=== PATIENT | female | born 1975 | race Caucasian/White ===

== ENCOUNTER 2016-05-26 16:57 | Emergency (ER) | payer MEDICAID ==
[2013-12-15 02:58] VITALS: BMI 37.5
[~2016-05-26 16:57] MED LIST: AMBIEN10 MG PO; CARAFATE1 G PO; COLCRYS0.6 MG PO; CYMBALTA60 MG PO; FIORICET/ESGIC1 TAB PO; INDERAL10 MG; KLONOPIN1 MG PO; NICODERM C1 PATCH .1 TD; PERCOCET 5-3251 TAB PO; PRILOSEC20 MG PO; TENORMIN50 MG PO; VISTARIL25 MG PO; XANAX1 MG PO; ZANTAC150 MG PO; ZOFRAN4 MG PO
[2016-05-26 18:13] LABS: BASOPHILS 0.2 % (0.0-2.0); HEMATOCRIT 39.4 % (36.0-48.0); HEMOGLOBIN 13.1 g/dL (12-16); IMMATURE GRANULOCYTES 0.1 % (0-5); LYMPHOCYTES 24.7 % (15-50); MCH 30.1 pg (26.0-34.0); MCHC 33.2 g/dL (31.0-37.0); MCV 90.6 fL (80.0-100.0); MEAN PLATELET VOLUME 10.6 fL (7.4-10.4); MONOCYTES 4.5 % (2-11); NEUTROPHILS 67.5 % (40-80); PLATELET COUNT 298 10x3/uL (130-400); RBC 4.35 10x6/uL (4.00-5.40); RDW 15.4 % (11.5-14.5); WBC 13.7 10x3/uL (4.8-10.8)
[2016-05-26 18:53] LABS: ALKALINE PHOSPHATASE 208 U/L (46-116); ALT (SGPT) 38 U/L (10-68); CALC OSMOLALITY 273 mosm/kg (275-300); CALCIUM 9.1 mg/dL (8.5-10.1); CARBON DIOXIDE 25.6 mmol/L (21.0-32.0); CHLORIDE - SERUM 104 mmol/L (98-107); CREATININE - SERUM 0.6 mg/dL (0.6-1.3); GLUCOSE 96 mg/dL (74-106); PROTEIN - SERUM 6.4 g/dL (6.4-8.2); SODIUM 137 mmol/L (136-145); UREA NITROGEN 13 mg/dL (7-18); eGFR NON AFRICAN AMERICAN > 90 mL/min (90-120)
[2016-05-26 21:28] LABS: APPEARANCE CLEAR (CLEAR); BILIRUBIN NEGATIVE (NEGATIVE); COLOR YELLOW (YELLOW); GLUCOSE NEGATIVE (NEGATIVE); KETONE NEGATIVE (NEGATIVE); LEUKOCYTE ESTERASE NEGATIVE (NEGATIVE); NITRITE NEGATIVE (NEGATIVE); PROTEIN NEGATIVE (NEGATIVE); UROBILINOGEN NORMAL (NORMAL)
[2016-05-26 21:38] LABS: UDS - AMPHET NEGATIVE QUAL (NEGATIVE); UDS - BARB NEGATIVE QUAL (NEGATIVE); UDS - BENZO NEGATIVE QUAL (NEGATIVE); UDS - COCAINE NEGATIVE QUAL (NEGATIVE); UDS - METH NEGATIVE QUAL (NEGATIVE); UDS - OPIATE POSITIVE QUAL (NEGATIVE); UDS - PCP NEGATIVE QUAL (NEGATIVE); UDS - THC NEGATIVE QUAL (NEGATIVE)
== END 2016-05-26 22:48 | disposition home or self-care (01) ==
LOC: D.ER 16:57
PROVIDERS: Emergency Medicine; Family Medicine
DX: J06.9 Acute upper respiratory infection, unspecified (principal); R07.89 Other chest pain; F17.200 Nicotine dependence, unspecified, uncomplicated; K21.9 Gastro-esophageal reflux disease without esophagitis; J44.9 Chronic obstructive pulmonary disease, unspecified

== ENCOUNTER 2016-08-19 19:37 | Emergency (ER) | payer MEDICAID ==
[2013-12-15 02:58] VITALS: BMI 37.5
== END 2016-08-19 21:00 | disposition left against medical advice (07) ==
LOC: D.ER 19:37
DX: M54.5 Low back pain (principal)

== ENCOUNTER → 2016-08-27 15:15 | Outpatient (CLI) | payer MEDICAID ==
[2013-12-15 02:58] VITALS: BMI 37.5
== END | disposition home or self-care (01) ==
LOC: D.MRI 08-25 16:30
DX: M54.5 Low back pain (principal)

== ENCOUNTER 2016-10-12 21:52 | Emergency (ER) | payer MEDICAID ==
[2013-12-15 02:58] VITALS: BMI 37.5
[2016-10-12 22:26] LABS: APPEARANCE CLEAR (CLEAR); BILIRUBIN NEGATIVE (NEGATIVE); COLOR YELLOW (YELLOW); GLUCOSE NEGATIVE (NEGATIVE); KETONE NEGATIVE (NEGATIVE); LEUKOCYTE ESTERASE NEGATIVE (NEGATIVE); NITRITE NEGATIVE (NEGATIVE); PROTEIN NEGATIVE (NEGATIVE); SPECIFIC GRAVITY 1.015 (1.005-1.020); UROBILINOGEN NORMAL (NORMAL)
[2016-10-12 22:47] LABS: UDS - AMPHET NEGATIVE QUAL (NEGATIVE); UDS - BARB POSITIVE QUAL (NEGATIVE); UDS - BENZO NEGATIVE QUAL (NEGATIVE); UDS - COCAINE NEGATIVE QUAL (NEGATIVE); UDS - METH NEGATIVE QUAL (NEGATIVE); UDS - OPIATE POSITIVE QUAL (NEGATIVE); UDS - PCP NEGATIVE QUAL (NEGATIVE); UDS - THC NEGATIVE QUAL (NEGATIVE)
== END 2016-10-12 23:27 | disposition home or self-care (01) ==
LOC: D.ER 21:52
PROVIDERS: Nurse Practitioner Acute Care
DX: B34.9 Viral infection, unspecified (principal); J44.9 Chronic obstructive pulmonary disease, unspecified; K21.9 Gastro-esophageal reflux disease without esophagitis; F17.200 Nicotine dependence, unspecified, uncomplicated; R06.02 Shortness of breath; R00.2 Palpitations; R05 Cough; R11.2 Nausea with vomiting, unspecified; R19.7 Diarrhea, unspecified; R51 Headache; R42 Dizziness and giddiness

== ENCOUNTER 2016-11-10 02:24 | Emergency (ER) | payer MEDICAID ==
[2013-12-15 02:58] VITALS: BMI 37.5
[2016-11-10 02:58] LABS: BASOPHILS 0.1 % (0-2); EOSINOPHILS 1.8 % (0-7); HEMATOCRIT 36.6 % (36.0-48.0); HEMOGLOBIN 12.8 g/dL (12-16); IMMATURE GRANULOCYTES 0.1 % (0-5); MCH 31.1 pg (26.0-34.0); MCV 89.1 fL (80.0-100.0); MEAN PLATELET VOLUME 10.4 fL (7.4-10.4); MONOCYTES 6.1 % (2-11); NEUTROPHILS 45.9 % (40-80); PLATELET COUNT 241 10x3/uL (130-400); RBC 4.11 10x6/uL (4.00-5.40); RDW 13.9 % (11.5-14.5); WBC 8.2 10x3/uL (4.8-10.8)
[2016-11-10 03:11] LABS: ACETAMINOPHEN 23.1 ug/mL (10.0-30.0); ALBUMIN 3.3 g/dL (3.4-5.0); ALKALINE PHOSPHATASE 84 U/L (46-116); ALT (SGPT) 10 U/L (10-68); BILIRUBIN - TOTAL 0.16 mg/dL (0.2-1.3); CALC OSMOLALITY 281 mosm/kg (275-300); CALCIUM 8.1 mg/dL (8.5-10.1); CARBON DIOXIDE 24.9 mmol/L (21.0-32.0); CHLORIDE - SERUM 106 mmol/L (98-107); CREATININE - SERUM 0.6 mg/dL (0.6-1.3); GLUCOSE 84 mg/dL (74-106); PROTEIN - SERUM 6.6 g/dL (6.4-8.2); SODIUM 142 mmol/L (136-145); UREA NITROGEN 12 mg/dL (7-18); eGFR NON AFRICAN AMERICAN > 90 mL/min (90-120)
[2016-11-10 03:14] LABS: POTASSIUM - SERUM 2.8 mmol/L (3.5-5.1)
[2016-11-10 04:38] LABS: APPEARANCE CLEAR (CLEAR); BILIRUBIN NEGATIVE (NEGATIVE); COLOR YELLOW (YELLOW); GLUCOSE NEGATIVE (NEGATIVE); KETONE NEGATIVE (NEGATIVE); LEUKOCYTE ESTERASE NEGATIVE (NEGATIVE); NITRITE NEGATIVE (NEGATIVE); PROTEIN NEGATIVE (NEGATIVE); UROBILINOGEN NORMAL (NORMAL)
[2016-11-10 04:53] LABS: UDS - AMPHET NEGATIVE QUAL (NEGATIVE); UDS - BARB POSITIVE QUAL (NEGATIVE); UDS - BENZO POSITIVE QUAL (NEGATIVE); UDS - COCAINE NEGATIVE QUAL (NEGATIVE); UDS - METH NEGATIVE QUAL (NEGATIVE); UDS - OPIATE NEGATIVE QUAL (NEGATIVE); UDS - PCP NEGATIVE QUAL (NEGATIVE); UDS - THC NEGATIVE QUAL (NEGATIVE)
== END 2016-11-10 07:09 | disposition short-term general hospital (02) ==
LOC: D.ER 02:24
PROVIDERS: Emergency Medicine
DX: F32.9 Major depressive disorder, single episode, unspecified (principal); R45.851 Suicidal ideations; E87.6 Hypokalemia; J44.9 Chronic obstructive pulmonary disease, unspecified; K21.9 Gastro-esophageal reflux disease without esophagitis; F17.200 Nicotine dependence, unspecified, uncomplicated

== ENCOUNTER 2017-01-06 21:54 | Emergency (ER) | payer MEDICAID ==
[2013-12-15 02:58] VITALS: BMI 37.5
[2017-01-06 22:47] LABS: BASOPHILS 0.2 % (0-2); EOSINOPHILS 1.7 % (0-7); HEMATOCRIT 40.2 % (36.0-48.0); HEMOGLOBIN 13.6 g/dL (12-16); IMMATURE GRANULOCYTES 0.2 % (0-5); LYMPHOCYTES 43.8 % (15-50); MCH 31.6 pg (26.0-34.0); MCHC 33.8 g/dL (31.0-37.0); MCV 93.3 fL (80.0-100.0); MEAN PLATELET VOLUME 10.7 fL (7.4-10.4); MONOCYTES 4.9 % (2-11); NEUTROPHILS 49.2 % (40-80); PLATELET COUNT 236 10x3/uL (130-400); RBC 4.31 10x6/uL (4.00-5.40); RDW 13.3 % (11.5-14.5); WBC 10.6 10x3/uL (4.8-10.8)
[2017-01-06 23:00] LABS: ALBUMIN 3.4 g/dL (3.4-5.0); ALKALINE PHOSPHATASE 99 U/L (46-116); ALT (SGPT) 11 U/L (10-68); CALC OSMOLALITY 281 mosm/kg (275-300); CALCIUM 8.3 mg/dL (8.5-10.1); CARBON DIOXIDE 21.6 mmol/L (21.0-32.0); CHLORIDE - SERUM 106 mmol/L (98-107); CREATININE - SERUM 0.8 mg/dL (0.6-1.3); GLUCOSE 88 mg/dL (74-106); POTASSIUM - SERUM 3.5 mmol/L (3.5-5.1); PROTEIN - SERUM 6.7 g/dL (6.4-8.2); SODIUM 141 mmol/L (136-145); UREA NITROGEN 19 mg/dL (7-18); eGFR NON AFRICAN AMERICAN 83 mL/min (90-120)
== END 2017-01-07 01:08 | disposition home or self-care (01) ==
LOC: D.ER 21:54
PROVIDERS: Emergency Medicine
DX: B34.9 Viral infection, unspecified (principal); R51 Headache; J44.9 Chronic obstructive pulmonary disease, unspecified; K21.9 Gastro-esophageal reflux disease without esophagitis; F17.200 Nicotine dependence, unspecified, uncomplicated

== ENCOUNTER 2017-01-07 10:14 | Emergency (ER) | payer MEDICAID ==
[2013-12-15 02:58] VITALS: BMI 37.5
== END 2017-01-07 12:36 | disposition home or self-care (01) ==
LOC: D.ER 10:14
DX: S16.1XXA Strain of muscle, fascia and tendon at neck level, initial encounter (principal); V49.9XXA Car occupant (driver) (passenger) injured in unspecified traffic accident, initial encounter; Y93.89 Activity, other specified; Y92.410 Unspecified street and highway as the place of occurrence of the external cause; S39.012A Strain of muscle, fascia and tendon of lower back, initial encounter; J44.9 Chronic obstructive pulmonary disease, unspecified; F17.200 Nicotine dependence, unspecified, uncomplicated

== ENCOUNTER 2017-01-11 23:15 | Emergency (ER) | payer MEDICAID ==
[2013-12-15 02:58] VITALS: BMI 37.5
[2017-01-11 23:48] LABS: BASOPHILS 0.1 % (0-2); EOSINOPHILS 2.2 % (0-7); HEMATOCRIT 36.7 % (36.0-48.0); HEMOGLOBIN 12.8 g/dL (12-16); LYMPHOCYTES 52.6 % (15-50); MCH 31.4 pg (26.0-34.0); MCHC 34.9 g/dL (31.0-37.0); MCV 90.2 fL (80.0-100.0); MEAN PLATELET VOLUME 10.5 fL (7.4-10.4); NEUTROPHILS 41.1 % (40-80); PLATELET COUNT 268 10x3/uL (130-400); RBC 4.07 10x6/uL (4.00-5.40)
[2017-01-12 00:01] LABS: ALBUMIN 3.3 g/dL (3.4-5.0); ALKALINE PHOSPHATASE 189 U/L (46-116); ALT (SGPT) 135 U/L (10-68); BILIRUBIN - TOTAL 0.11 mg/dL (0.2-1.3); CALC OSMOLALITY 283 mosm/kg (275-300); CALCIUM 8.8 mg/dL (8.5-10.1); CHLORIDE - SERUM 108 mmol/L (98-107); CREATININE - SERUM 0.6 mg/dL (0.6-1.3); GLUCOSE 95 mg/dL (74-106); MAGNESIUM - SERUM 1.9 mg/dL (1.8-2.4); POTASSIUM - SERUM 3.2 mmol/L (3.5-5.1); PROTEIN - SERUM 6.8 g/dL (6.4-8.2); SODIUM 142 mmol/L (136-145); UREA NITROGEN 16 mg/dL (7-18); eGFR NON AFRICAN AMERICAN > 90 mL/min (90-120)
[2017-01-12 00:01] LABS: APPEARANCE HAZY (CLEAR); BILIRUBIN NEGATIVE (NEGATIVE); COLOR YELLOW (YELLOW); GLUCOSE NEGATIVE (NEGATIVE); KETONE NEGATIVE (NEGATIVE); NITRITE POSITIVE (NEGATIVE); PROTEIN NEGATIVE (NEGATIVE); SPECIFIC GRAVITY 1.015 (1.005-1.020); UROBILINOGEN NORMAL (NORMAL)
[2017-01-12 00:05] LABS: UDS - AMPHET NEGATIVE QUAL (NEGATIVE); UDS - BARB POSITIVE QUAL (NEGATIVE); UDS - BENZO NEGATIVE QUAL (NEGATIVE); UDS - COCAINE NEGATIVE QUAL (NEGATIVE); UDS - OPIATE POSITIVE QUAL (NEGATIVE); UDS - PCP NEGATIVE QUAL (NEGATIVE); UDS - THC NEGATIVE QUAL (NEGATIVE)
[2017-01-12 00:13] LABS: BACTERIA MANY /hpf (NONE SEEN); GRANULAR CAST 0-5 /lpf (NONE SEEN); HYALINE CAST RARE /lpf (NONE SEEN); RED CELLS - URINE 0-5 /hpf (0-5); WHITE CELLS - URINE 0-5 /hpf (0-5)
== END 2017-01-12 00:58 | disposition home or self-care (01) ==
LOC: D.ER 23:15
PROVIDERS: Emergency Medicine
DX: E87.6 Hypokalemia (principal); N76.0 Acute vaginitis; N39.0 Urinary tract infection, site not specified; R55 Syncope and collapse; R11.10 Vomiting, unspecified; J44.9 Chronic obstructive pulmonary disease, unspecified; K21.9 Gastro-esophageal reflux disease without esophagitis; F17.200 Nicotine dependence, unspecified, uncomplicated

== ENCOUNTER 2017-04-25 01:52 | Emergency (ER) | payer MEDICAID ==
[2013-12-15 02:58] VITALS: BMI 37.5
[2017-04-25 02:47] LABS: BASOPHILS 0.2 % (0-2); EOSINOPHILS 2.3 % (0-7); HEMATOCRIT 37.1 % (36.0-48.0); HEMOGLOBIN 12.5 g/dL (12-16); IMMATURE GRANULOCYTES 0.1 % (0-5); LYMPHOCYTES 45.1 % (15-50); MCH 30.3 pg (26.0-34.0); MCHC 33.7 g/dL (31.0-37.0); MCV 89.8 fL (80.0-100.0); MEAN PLATELET VOLUME 9.7 fL (7.4-10.4); MONOCYTES 6.1 % (2-11); NEUTROPHILS 46.2 % (40-80); PLATELET COUNT 289 10x3/uL (130-400); RBC 4.13 10x6/uL (4.00-5.40); WBC 8.8 10x3/uL (4.8-10.8)
[2017-04-25 02:57] LABS: ALBUMIN 3.3 g/dL (3.4-5.0); ALKALINE PHOSPHATASE 110 U/L (46-116); ALT (SGPT) 18 U/L (10-68); CALC OSMOLALITY 278 mosm/kg (275-300); CALCIUM 8.8 mg/dL (8.5-10.1); CARBON DIOXIDE 26.3 mmol/L (21.0-32.0); CHLORIDE - SERUM 105 mmol/L (98-107); CREATININE - SERUM 0.7 mg/dL (0.6-1.3); GLUCOSE 94 mg/dL (74-106); POTASSIUM - SERUM 3.8 mmol/L (3.5-5.1); PROTEIN - SERUM 6.7 g/dL (6.4-8.2); SODIUM 138 mmol/L (136-145); UREA NITROGEN 20 mg/dL (7-18); eGFR NON AFRICAN AMERICAN > 90 mL/min (90-120)
[2017-04-25 02:59] LABS: BILIRUBIN - TOTAL 0.04 mg/dL (0.2-1.3)
[2017-04-25 03:01] LABS: CREATINE KINASE 89 UL (21-215)
[2017-04-25 03:06] LABS: TROPONIN-I < 0.017 ng/mL (0.000-0.060)
== END 2017-04-25 03:35 | disposition home or self-care (01) ==
LOC: D.ER 01:52
PROVIDERS: Emergency Medicine
DX: R51 Headache (principal); R07.9 Chest pain, unspecified; J44.9 Chronic obstructive pulmonary disease, unspecified; K21.9 Gastro-esophageal reflux disease without esophagitis

== ENCOUNTER 2017-04-27 20:50 | Emergency (ER) | payer MEDICAID ==
[2013-12-15 02:58] VITALS: BMI 37.5
[2017-04-27 21:35] LABS: HEMATOCRIT 38.9 % (36.0-48.0); HEMOGLOBIN 13.4 g/dL (12-16); LYMPHOCYTES 42.4 % (15-50); MCH 30.7 pg (26.0-34.0); MCHC 34.4 g/dL (31.0-37.0); MCV 89.2 fL (80.0-100.0); MEAN PLATELET VOLUME 9.6 fL (7.4-10.4); NEUTROPHILS 54.4 % (40-80); PLATELET COUNT 319 10x3/uL (130-400); RBC 4.36 10x6/uL (4.00-5.40); RDW 12.9 % (11.5-14.5); WBC 8.9 10x3/uL (4.8-10.8)
[2017-04-27 21:48] LABS: ALBUMIN 3.5 g/dL (3.4-5.0); ALKALINE PHOSPHATASE 147 U/L (46-116); ALT (SGPT) 29 U/L (10-68); BILIRUBIN - TOTAL 0.11 mg/dL (0.2-1.3); CALC OSMOLALITY 276 mosm/kg (275-300); CALCIUM 8.6 mg/dL (8.5-10.1); CARBON DIOXIDE 23.4 mmol/L (21.0-32.0); CHLORIDE - SERUM 106 mmol/L (98-107); CREATININE - SERUM 0.9 mg/dL (0.6-1.3); GLUCOSE 94 mg/dL (74-106); POTASSIUM - SERUM 3.5 mmol/L (3.5-5.1); PROTEIN - SERUM 7.1 g/dL (6.4-8.2); SODIUM 138 mmol/L (136-145); UREA NITROGEN 14 mg/dL (7-18); eGFR NON AFRICAN AMERICAN 73 mL/min (90-120)
[2017-04-27 21:59] LABS: CREATINE KINASE 69 UL (21-215)
[2017-04-27 22:01] LABS: TROPONIN-I < 0.017 ng/mL (0.000-0.060)
== END 2017-04-27 23:43 | disposition home or self-care (01) ==
LOC: D.ER 20:50
PROVIDERS: Physician Assistant Medical
DX: R07.89 Other chest pain (principal); F17.200 Nicotine dependence, unspecified, uncomplicated

== ENCOUNTER 2017-05-10 05:30 | Inpatient (IN) | payer MEDICAID ==
[~2017-05-10] VITALS: Ht 165.1 cm; Wt 75.7 kg
[2017-05-10 06:36] LABS: BASOPHILS 0.2 % (0-2); EOSINOPHILS 1.3 % (0-7); HEMOGLOBIN 12.5 g/dL (12-16); IMMATURE GRANULOCYTES 1.3 % (0-5); LYMPHOCYTES 14.4 % (15-50); MCH 30.3 pg (26.0-34.0); MCHC 33.8 g/dL (31.0-37.0); MCV 89.8 fL (80.0-100.0); MONOCYTES 15.6 % (2-11); NEUTROPHILS 67.2 % (40-80); PLATELET COUNT 242 10x3/uL (130-400); RBC 4.12 10x6/uL (4.00-5.40); RDW 13.9 % (11.5-14.5); WBC 10.5 10x3/uL (4.8-10.8)
[2017-05-10 06:47] LABS: ALBUMIN 2.7 g/dL (3.4-5.0); ALKALINE PHOSPHATASE 197 U/L (46-116); ALT (SGPT) 30 U/L (10-68); BILIRUBIN - TOTAL 0.41 mg/dL (0.2-1.3); CALC OSMOLALITY 261 mosm/kg (275-300); CALCIUM 8.4 mg/dL (8.5-10.1); CARBON DIOXIDE 23.9 mmol/L (21.0-32.0); CHLORIDE - SERUM 97 mmol/L (98-107); CREATININE - SERUM 0.5 mg/dL (0.6-1.3); GLUCOSE 97 mg/dL (74-106); POTASSIUM - SERUM 3.6 mmol/L (3.5-5.1); PROTEIN - SERUM 6.1 g/dL (6.4-8.2); SODIUM 131 mmol/L (136-145); UREA NITROGEN 9 mg/dL (7-18); eGFR NON AFRICAN AMERICAN > 90 mL/min (90-120)
[2017-05-10 06:50] LABS: AMYLASE - SERUM 30 U/L (25-115); CREATINE KINASE 62 UL (21-215); LIPASE 59 U/L (73-393)
[2017-05-10 06:51] LABS: TROPONIN-I < 0.017 ng/mL (0.000-0.060)
[2017-05-10 08:29] LABS: UDS - AMPHET NEGATIVE QUAL (NEGATIVE); UDS - BARB POSITIVE QUAL (NEGATIVE); UDS - BENZO NEGATIVE QUAL (NEGATIVE); UDS - COCAINE NEGATIVE QUAL (NEGATIVE); UDS - OPIATE POSITIVE QUAL (NEGATIVE); UDS - PCP NEGATIVE QUAL (NEGATIVE); UDS - THC NEGATIVE QUAL (NEGATIVE)
[2017-05-10 08:34] LABS: APPEARANCE CLEAR (CLEAR); BILIRUBIN NEGATIVE (NEGATIVE); COLOR DK YELLOW (YELLOW); GLUCOSE NEGATIVE (NEGATIVE); KETONE SMALL mg/dL (NEGATIVE); NITRITE NEGATIVE (NEGATIVE); PROTEIN TRACE mg/dL (NEGATIVE); UROBILINOGEN NORMAL (NORMAL)
[2017-05-10 08:36] LABS: BACTERIA FEW /hpf (NONE SEEN); EPITHELIAL CELLS 0-5 /hpf (0-5); RED CELLS - URINE 0-5 /hpf (0-5)
[2017-05-10 08:44] LABS: HCG URINE NEGATIVE (NEGATIVE)
[2017-05-10 08:46] LABS: CKMB 0.4 U/L (0.0-3.6)
[2017-05-10 08:55] LABS: INR 1.1 (0.85-1.17); PROTIME 13.8 SECONDS (11.6-15.0)
[2017-05-10 09:10] LABS: D-DIMER-QUANTITATIVE 4.72 ug/mLFEU (0.20-0.54)
[2017-05-10 16:16] VITALS: BP 117/66; BMI 23.3
[2017-05-11 06:00] VITALS: BP 103/62
[2017-05-11 06:53] LABS: BASOPHILS 0.1 % (0-2); EOSINOPHILS 0.1 % (0-7); HEMATOCRIT 30.4 % (36.0-48.0); HEMOGLOBIN 10.3 g/dL (12-16); IMMATURE GRANULOCYTES 1.4 % (0-5); LYMPHOCYTES 17.7 % (15-50); MCH 29.9 pg (26.0-34.0); MCHC 33.9 g/dL (31.0-37.0); MCV 88.1 fL (80.0-100.0); MEAN PLATELET VOLUME 10.2 fL (7.4-10.4); NEUTROPHILS 66.7 % (40-80); RBC 3.45 10x6/uL (4.00-5.40); RDW 13.9 % (11.5-14.5); WBC 11.9 10x3/uL (4.8-10.8)
[2017-05-11 06:59] LABS: PLATELET COUNT 353 10x3/uL (130-400)
[2017-05-11 07:19] LABS: INR 1.1 (0.85-1.17); PROTIME 13.8 SECONDS (11.6-15.0)
[2017-05-11 07:20] LABS: ALBUMIN 2.4 g/dL (3.4-5.0); ALKALINE PHOSPHATASE 165 U/L (46-116); ALT (SGPT) 26 U/L (10-68); AMYLASE - SERUM 30 U/L (25-115); CALC OSMOLALITY 274 mosm/kg (275-300); CALCIUM 8.2 mg/dL (8.5-10.1); CARBON DIOXIDE 26.2 mmol/L (21.0-32.0); CHLORIDE - SERUM 101 mmol/L (98-107); CHOL - HDL RATIO 7.7 ratio (2.3-4.1); CHOLESTEROL, TOTAL 138 mg/dL (0-200); CREATININE - SERUM 0.6 mg/dL (0.6-1.3); GLUCOSE 94 mg/dL (74-106); HDL CHOLESTEROL 18 mg/dL (32-96); LDL CHOLESTEROL 99 mg/dL (0-100); LDL-HDL RATIO 5.5 ratio (1.5-3.5); LIPASE 53 U/L (73-393); PRE-ALBUMIN 10.4 mg/dL (18.0-35.7); PROTEIN - SERUM 6.4 g/dL (6.4-8.2); SODIUM 138 mmol/L (136-145); TRIGLYCERIDE 105 mg/dL (30-200); UREA NITROGEN 10 mg/dL (7-18); eGFR NON AFRICAN AMERICAN > 90 mL/min (90-120)
[2017-05-11 07:50] VITALS: BP 116/56
[2017-05-11 12:00] VITALS: BP 113/95
[2017-05-11 12:55] VITALS: Ht 165.1 cm; Wt 75.7 kg
[2017-05-11 20:00] VITALS: BP 129/53
[2017-05-12] VITALS: BP 118/77
[2017-05-12 05:57] VITALS: BP 116/60
[2017-05-12 06:43] LABS: ALBUMIN 2.3 g/dL (3.4-5.0); ALKALINE PHOSPHATASE 141 U/L (46-116); AMYLASE - SERUM 25 U/L (25-115); CALC OSMOLALITY 271 mosm/kg (275-300); CARBON DIOXIDE 23.7 mmol/L (21.0-32.0); CHLORIDE - SERUM 100 mmol/L (98-107); CREATININE - SERUM 0.6 mg/dL (0.6-1.3); GLUCOSE 134 mg/dL (74-106); PROTEIN - SERUM 6.2 g/dL (6.4-8.2); SODIUM 136 mmol/L (136-145); UREA NITROGEN 8 mg/dL (7-18); eGFR NON AFRICAN AMERICAN > 90 mL/min (90-120)
[2017-05-12 06:50] LABS: ALT (SGPT) 18 U/L (10-68); LIPASE 49 U/L (73-393)
[2017-05-12 06:53] LABS: POTASSIUM - SERUM 2.5 mmol/L (3.5-5.1)
[2017-05-12 07:15] LABS: BASOPHILS 0 % (0-2); EOSINOPHILS 0.1 % (0-7); HEMATOCRIT 30.5 % (36.0-48.0); HEMOGLOBIN 10.4 g/dL (12-16); IMMATURE GRANULOCYTES 0.8 % (0-5); MCH 30.1 pg (26.0-34.0); MCHC 34.1 g/dL (31.0-37.0); MCV 88.4 fL (80.0-100.0); MEAN PLATELET VOLUME 9.9 fL (7.4-10.4); MONOCYTES 9.7 % (2-11); NEUTROPHILS 74.4 % (40-80); PLATELET COUNT 446 10x3/uL (130-400); RBC 3.45 10x6/uL (4.00-5.40); RDW 14.2 % (11.5-14.5); WBC 21.7 10x3/uL (4.8-10.8)
[2017-05-12 09:37] VITALS: BP 96/62
[2017-05-12 11:50] VITALS: BP 102/38
[2017-05-12 16:20] VITALS: BP 138/64
[2017-05-12 20:00] VITALS: BP 105/50
[2017-05-13 06:57] LABS: HEMATOCRIT 30.6 % (36.0-48.0); HEMOGLOBIN 10.3 g/dL (12-16); MCH 30.2 pg (26.0-34.0); MCHC 33.7 g/dL (31.0-37.0); MCV 89.7 fL (80.0-100.0); MEAN PLATELET VOLUME 9.1 fL (7.4-10.4); PLATELET COUNT 533 10x3/uL (130-400); RBC 3.41 10x6/uL (4.00-5.40); RDW 14.5 % (11.5-14.5)
[2017-05-13 07:13] LABS: ALBUMIN 2.2 g/dL (3.4-5.0); ALKALINE PHOSPHATASE 155 U/L (46-116); ALT (SGPT) 14 U/L (10-68); AMYLASE - SERUM 25 U/L (25-115); BILIRUBIN - TOTAL 0.27 mg/dL (0.2-1.3); CALC OSMOLALITY 274 mosm/kg (275-300); CALCIUM 8.5 mg/dL (8.5-10.1); CARBON DIOXIDE 29.1 mmol/L (21.0-32.0); CHLORIDE - SERUM 102 mmol/L (98-107); CREATININE - SERUM 0.7 mg/dL (0.6-1.3); GLUCOSE 94 mg/dL (74-106); LIPASE 59 U/L (73-393); PROTEIN - SERUM 6.2 g/dL (6.4-8.2); SODIUM 139 mmol/L (136-145); eGFR NON AFRICAN AMERICAN > 90 mL/min (90-120)
[2017-05-13 07:14] LABS: UREA NITROGEN 4 mg/dL (7-18)
[2017-05-13 08:05] LABS: LYMPHOCYTES 13 % (15-50); MONOCYTES 5 % (2-11); NEUTROPHILS 80 % (40-80); PLATELET ESTIMATE INCREASED
[2017-05-13 08:06] LABS: HYPOCHROMASIA 1+
[2017-05-13 08:37] VITALS: BP 122/57
[2017-05-13 12:35] VITALS: BP 121/38
[2017-05-13 16:35] VITALS: BP 127/62
[2017-05-13 21:41] VITALS: BP 92/30
[2017-05-14 00:41] VITALS: BP 127/52
[2017-05-14 05:32] VITALS: BP 118/80
[2017-05-14 06:47] LABS: BASOPHILS 0.1 % (0-2); EOSINOPHILS 0.7 % (0-7); HEMATOCRIT 31.2 % (36.0-48.0); HEMOGLOBIN 10.4 g/dL (12-16); LYMPHOCYTES 10.7 % (15-50); MCH 30.2 pg (26.0-34.0); MCHC 33.3 g/dL (31.0-37.0); MCV 90.7 fL (80.0-100.0); MEAN PLATELET VOLUME 9.5 fL (7.4-10.4); MONOCYTES 4.5 % (2-11); PLATELET COUNT 622 10x3/uL (130-400); RBC 3.44 10x6/uL (4.00-5.40); RDW 14.5 % (11.5-14.5); WBC 25.6 10x3/uL (4.8-10.8)
[2017-05-14 06:59] LABS: ALBUMIN 2.3 g/dL (3.4-5.0); ALKALINE PHOSPHATASE 162 U/L (46-116); ALT (SGPT) 13 U/L (10-68); AMYLASE - SERUM 24 U/L (25-115); BILIRUBIN - TOTAL 0.37 mg/dL (0.2-1.3); CALC OSMOLALITY 264 mosm/kg (275-300); CARBON DIOXIDE 26.4 mmol/L (21.0-32.0); CHLORIDE - SERUM 97 mmol/L (98-107); CREATININE - SERUM 0.6 mg/dL (0.6-1.3); GLUCOSE 106 mg/dL (74-106); LIPASE 51 U/L (73-393); POTASSIUM - SERUM 3.6 mmol/L (3.5-5.1); PROTEIN - SERUM 6.7 g/dL (6.4-8.2); SODIUM 134 mmol/L (136-145); UREA NITROGEN 5 mg/dL (7-18); eGFR NON AFRICAN AMERICAN > 90 mL/min (90-120)
[2017-05-14 07:33] VITALS: BP 104/49
[2017-05-14 11:31] VITALS: BP 108/55
[2017-05-14 15:56] VITALS: BP 112/49
[2017-05-14 18:14] LABS: APPEARANCE CLEAR (CLEAR); BILIRUBIN NEGATIVE (NEGATIVE); COLOR YELLOW (YELLOW); GLUCOSE NEGATIVE (NEGATIVE); KETONE NEGATIVE (NEGATIVE); NITRITE NEGATIVE (NEGATIVE); PROTEIN NEGATIVE (NEGATIVE); UROBILINOGEN NORMAL (NORMAL)
[2017-05-14 18:15] LABS: EPITHELIAL CELLS 0-5 /hpf (0-5); RED CELLS - URINE OCC /hpf (0-5)
[2017-05-14 20:00] VITALS: BP 103/40
[2017-05-15] VITALS: BP 110/48
[2017-05-15 05:46] LABS: BASOPHILS 0.1 % (0-2); EOSINOPHILS 1.2 % (0-7); HEMATOCRIT 30.1 % (36.0-48.0); IMMATURE GRANULOCYTES 0.7 % (0-5); LYMPHOCYTES 18.8 % (15-50); MCH 29.7 pg (26.0-34.0); MCHC 33.2 g/dL (31.0-37.0); MCV 89.3 fL (80.0-100.0); MEAN PLATELET VOLUME 9.2 fL (7.4-10.4); MONOCYTES 5.8 % (2-11); NEUTROPHILS 73.4 % (40-80); PLATELET COUNT 723 10x3/uL (130-400); RBC 3.37 10x6/uL (4.00-5.40); RDW 14.2 % (11.5-14.5)
[2017-05-15 05:51] LABS: WBC 18.1 10x3/uL (4.8-10.8)
[2017-05-15 06:11] LABS: ALBUMIN 2.2 g/dL (3.4-5.0); ALKALINE PHOSPHATASE 155 U/L (46-116); ALT (SGPT) 10 U/L (10-68); AMYLASE - SERUM 23 U/L (25-115); BILIRUBIN - TOTAL 0.26 mg/dL (0.2-1.3); CALC OSMOLALITY 270 mosm/kg (275-300); CALCIUM 8.8 mg/dL (8.5-10.1); CARBON DIOXIDE 26.3 mmol/L (21.0-32.0); CHLORIDE - SERUM 101 mmol/L (98-107); CREATININE - SERUM 0.5 mg/dL (0.6-1.3); GLUCOSE 86 mg/dL (74-106); LIPASE 62 U/L (73-393); POTASSIUM - SERUM 3.4 mmol/L (3.5-5.1); PROTEIN - SERUM 6.5 g/dL (6.4-8.2); SODIUM 137 mmol/L (136-145); UREA NITROGEN 6 mg/dL (7-18); eGFR NON AFRICAN AMERICAN > 90 mL/min (90-120)
[2017-05-15 09:51] VITALS: BP 89/60
[2017-05-15 10:22] VITALS: BP 112/64
[2017-05-15 10:45] VITALS: BP 112/43
[2017-05-15 15:35] VITALS: BP 109/52
[2017-05-15 20:54] VITALS: BP 98/68
[2017-05-16] VITALS (7 sets, daily range): BP systolic 91–150; BP diastolic 36–77
[2017-05-16 08:20] LABS: BASOPHILS 0.1 % (0-2); EOSINOPHILS 0.8 % (0-7); HEMATOCRIT 27.2 % (36.0-48.0); IMMATURE GRANULOCYTES 0.7 % (0-5); LYMPHOCYTES 19.8 % (15-50); MCH 29.7 pg (26.0-34.0); MCHC 33.1 g/dL (31.0-37.0); MCV 89.8 fL (80.0-100.0); MEAN PLATELET VOLUME 8.7 fL (7.4-10.4); MONOCYTES 6.4 % (2-11); NEUTROPHILS 72.2 % (40-80); PLATELET COUNT 632 10x3/uL (130-400); RBC 3.03 10x6/uL (4.00-5.40); RDW 14.5 % (11.5-14.5)
[2017-05-16 08:22] LABS: WBC 13.1 10x3/uL (4.8-10.8)
[2017-05-16 08:50] LABS: ALBUMIN 2.1 g/dL (3.4-5.0); ALKALINE PHOSPHATASE 133 U/L (46-116); ALT (SGPT) 10 U/L (10-68); AMYLASE - SERUM 22 U/L (25-115); CALC OSMOLALITY 269 mosm/kg (275-300); CALCIUM 8.1 mg/dL (8.5-10.1); CARBON DIOXIDE 26.9 mmol/L (21.0-32.0); CHLORIDE - SERUM 101 mmol/L (98-107); CREATININE - SERUM 0.5 mg/dL (0.6-1.3); GLUCOSE 95 mg/dL (74-106); LIPASE 54 U/L (73-393); POTASSIUM - SERUM 3.4 mmol/L (3.5-5.1); SODIUM 136 mmol/L (136-145); UREA NITROGEN 6 mg/dL (7-18); eGFR NON AFRICAN AMERICAN > 90 mL/min (90-120)
[2017-05-17 05:55] VITALS: BP 110/53
[2017-05-17 06:39] LABS: BASOPHILS 0.1 % (0-2); EOSINOPHILS 0.6 % (0-7); HEMATOCRIT 29.8 % (36.0-48.0); HEMOGLOBIN 9.9 g/dL (12-16); IMMATURE GRANULOCYTES 0.6 % (0-5); LYMPHOCYTES 18.4 % (15-50); MCH 30.2 pg (26.0-34.0); MCHC 33.2 g/dL (31.0-37.0); MCV 90.9 fL (80.0-100.0); MEAN PLATELET VOLUME 8.8 fL (7.4-10.4); MONOCYTES 5.8 % (2-11); NEUTROPHILS 74.5 % (40-80); RBC 3.28 10x6/uL (4.00-5.40); RDW 14.6 % (11.5-14.5); WBC 12.4 10x3/uL (4.8-10.8)
[2017-05-17 06:44] LABS: PLATELET COUNT 787 10x3/uL (130-400)
[2017-05-17 08:38] VITALS: BP 98/42
[2017-05-17 11:24] VITALS: BP 96/56
[2017-05-17 16:05] VITALS: BP 97/52
[2017-05-17 20:15] VITALS: BP 133/53
[2017-05-18 00:30] VITALS: BP 100/57
[2017-05-18 06:24] VITALS: BP 95/37
[2017-05-18 06:26] LABS: BASOPHILS 0.3 % (0-2); HEMATOCRIT 31.5 % (36.0-48.0); HEMOGLOBIN 10.2 g/dL (12-16); LYMPHOCYTES 32.1 % (15-50); MCH 29.8 pg (26.0-34.0); MCHC 32.4 g/dL (31.0-37.0); MCV 92.1 fL (80.0-100.0); MEAN PLATELET VOLUME 8.5 fL (7.4-10.4); NEUTROPHILS 58.6 % (40-80); PLATELET COUNT 848 10x3/uL (130-400); RBC 3.42 10x6/uL (4.00-5.40); RDW 14.5 % (11.5-14.5); WBC 10.3 10x3/uL (4.8-10.8)
[2017-05-18 06:57] LABS: ALBUMIN 2.1 g/dL (3.4-5.0); ALKALINE PHOSPHATASE 134 U/L (46-116); ALT (SGPT) 9 U/L (10-68); BILIRUBIN - DIRECT 0.05 mg/dL (0.00-0.30); BILIRUBIN - TOTAL 0.15 mg/dL (0.2-1.3); CALC OSMOLALITY 272 mosm/kg (275-300); CALCIUM 9.1 mg/dL (8.5-10.1); CARBON DIOXIDE 28.2 mmol/L (21.0-32.0); CHLORIDE - SERUM 101 mmol/L (98-107); CREATININE - SERUM 0.6 mg/dL (0.6-1.3); GLUCOSE 97 mg/dL (74-106); LIPASE 87 U/L (73-393); POTASSIUM - SERUM 3.7 mmol/L (3.5-5.1); PROTEIN - SERUM 6.6 g/dL (6.4-8.2); SODIUM 138 mmol/L (136-145); UREA NITROGEN 5 mg/dL (7-18); eGFR NON AFRICAN AMERICAN > 90 mL/min (90-120)
[2017-05-18 08:21] VITALS: BP 104/64
[2017-05-18 12:26] VITALS: BP 111/70
[2017-05-18 15:26] VITALS: BP 98/56
[2017-05-18 20:00] VITALS: BP 106/58
== END 2017-05-18 20:40 | disposition home or self-care (01) | DRG 391 ==
LOC: D.ER 05:30 → D.M2 14:27 → D.EDHOLD 14:27 → D.M2 15:28
PROVIDERS: Family Medicine; Internal Medicine Gastroenterology
DX: K52.9 Noninfective gastroenteritis and colitis, unspecified (principal); K85.90 Acute pancreatitis without necrosis or infection, unspecified; E87.1 Hypo-osmolality and hyponatremia; F31.30 Bipolar disorder, current episode depressed, mild or moderate severity, unspecified; N10 Acute pyelonephritis; I10 Essential (primary) hypertension; J44.9 Chronic obstructive pulmonary disease, unspecified; K21.9 Gastro-esophageal reflux disease without esophagitis; K29.00 Acute gastritis without bleeding; F41.9 Anxiety disorder, unspecified; K29.80 Duodenitis without bleeding; R16.0 Hepatomegaly, not elsewhere classified; K44.9 Diaphragmatic hernia without obstruction or gangrene; K26.9 Duodenal ulcer, unspecified as acute or chronic, without hemorrhage or perforation; Z72.0 Tobacco use

== ENCOUNTER 2017-06-10 22:11 | Inpatient (IN) | payer MEDICAID ==
[~2017-06-10] VITALS: Ht 165.1 cm; Wt 60.3 kg
[2017-06-10 23:24] LABS: HEMATOCRIT 36.8 % (36.0-48.0); HEMOGLOBIN 12.3 g/dL (12-16); LYMPHOCYTES 43.6 % (15-50); MCH 29.5 pg (26.0-34.0); MCHC 33.4 g/dL (31.0-37.0); MCV 88.2 fL (80.0-100.0); MEAN PLATELET VOLUME 9.8 fL (7.4-10.4); RBC 4.17 10x6/uL (4.00-5.40); RDW 13.3 % (11.5-14.5); WBC 10.1 10x3/uL (4.8-10.8)
[2017-06-10 23:25] LABS: PLATELET COUNT 344 10x3/uL (130-400)
[2017-06-10 23:38] LABS: ALBUMIN 3.6 g/dL (3.4-5.0); ALKALINE PHOSPHATASE 101 U/L (46-116); ALT (SGPT) 14 U/L (10-68); AMYLASE - SERUM 25 U/L (25-115); CALC OSMOLALITY 280 mosm/kg (275-300); CALCIUM 9.2 mg/dL (8.5-10.1); CARBON DIOXIDE 24.7 mmol/L (21.0-32.0); CHLORIDE - SERUM 105 mmol/L (98-107); CREATININE - SERUM 0.7 mg/dL (0.6-1.3); GLUCOSE 90 mg/dL (74-106); LIPASE 59 U/L (73-393); POTASSIUM - SERUM 3.7 mmol/L (3.5-5.1); PROTEIN - SERUM 7.5 g/dL (6.4-8.2); SODIUM 141 mmol/L (136-145); UREA NITROGEN 12 mg/dL (7-18); eGFR NON AFRICAN AMERICAN > 90 mL/min (90-120)
[2017-06-11 00:09] LABS: APPEARANCE CLEAR (CLEAR); BILIRUBIN NEGATIVE (NEGATIVE); COLOR YELLOW (YELLOW); GLUCOSE NEGATIVE (NEGATIVE); KETONE NEGATIVE (NEGATIVE); NITRITE NEGATIVE (NEGATIVE); PROTEIN NEGATIVE (NEGATIVE); UROBILINOGEN NORMAL (NORMAL)
[2017-06-11 00:11] LABS: BACTERIA FEW /hpf (NONE SEEN); EPITHELIAL CELLS 0-5 /hpf (0-5); RED CELLS - URINE 0-5 /hpf (0-5); WHITE CELLS - URINE 0-5 /hpf (0-5)
[2017-06-11 05:25] VITALS: BMI 22.1
[2017-06-11 08:19] VITALS: BP 101/42
[2017-06-11 10:58] LABS: BASOPHILS 0.5 % (0-2); EOSINOPHILS 3.4 % (0-7); HEMATOCRIT 36.5 % (36.0-48.0); HEMOGLOBIN 11.4 g/dL (12-16); IMMATURE GRANULOCYTES 0.2 % (0-5); LYMPHOCYTES 49.5 % (15-50); MCH 28.6 pg (26.0-34.0); MCHC 31.2 g/dL (31.0-37.0); MONOCYTES 6.3 % (2-11); NEUTROPHILS 40.1 % (40-80); PLATELET COUNT 312 10x3/uL (130-400); RBC 3.98 10x6/uL (4.00-5.40); RDW 13.5 % (11.5-14.5)
[2017-06-11 11:04] LABS: MCV 91.7 fL (80.0-100.0); WBC 6.4 10x3/uL (4.8-10.8)
[2017-06-11 11:13] LABS: AMYLASE - SERUM 21 U/L (25-115); LIPASE 54 U/L (73-393)
[2017-06-11] MEDS ORDERED: ROPINIROLE HCL2 MG PO (11:46)
[2017-06-11 12:49] VITALS: BP 111/46
[2017-06-11 12:50] VITALS: BMI 22.1
[2017-06-11 15:55] VITALS: BP 97/49
[2017-06-11 16:56] VITALS: Ht 165.1 cm; Wt 60.3 kg
[2017-06-11] MEDS ORDERED: LAMICTAL25 MG PO (20:40)
[2017-06-11 20:46] VITALS: BP 119/61
[2017-06-12] VITALS (7 sets, daily range): BP systolic 97–130; BP diastolic 36–62
[2017-06-12 08:22] LABS: ALBUMIN 3.2 g/dL (3.4-5.0); ALKALINE PHOSPHATASE 104 U/L (46-116); ALT (SGPT) 11 U/L (10-68); CALC OSMOLALITY 281 mosm/kg (275-300); CALCIUM 8.5 mg/dL (8.5-10.1); CARBON DIOXIDE 28.1 mmol/L (21.0-32.0); CHLORIDE - SERUM 105 mmol/L (98-107); CREATININE - SERUM 0.6 mg/dL (0.6-1.3); GLUCOSE 85 mg/dL (74-106); LIPASE 61 U/L (73-393); POTASSIUM - SERUM 3.3 mmol/L (3.5-5.1); PROTEIN - SERUM 6.9 g/dL (6.4-8.2); SODIUM 143 mmol/L (136-145); eGFR NON AFRICAN AMERICAN > 90 mL/min (90-120)
[2017-06-12 08:25] LABS: UREA NITROGEN 6 mg/dL (7-18)
[2017-06-12 08:28] LABS: BASOPHILS 0.2 % (0-2); EOSINOPHILS 2.8 % (0-7); HEMATOCRIT 40.2 % (36.0-48.0); HEMOGLOBIN 13.3 g/dL (12-16); IMMATURE GRANULOCYTES 0.1 % (0-5); LYMPHOCYTES 43.3 % (15-50); MCH 29.8 pg (26.0-34.0); MCHC 33.1 g/dL (31.0-37.0); MCV 90.1 fL (80.0-100.0); MEAN PLATELET VOLUME 11.6 fL (7.4-10.4); MONOCYTES 5.4 % (2-11); NEUTROPHILS 48.2 % (40-80); PLATELET COUNT 256 10x3/uL (130-400); RBC 4.46 10x6/uL (4.00-5.40); RDW 13.6 % (11.5-14.5)
[2017-06-12 08:30] LABS: WBC 8.7 10x3/uL (4.8-10.8)
[2017-06-12 08:44] LABS: INR 0.96 (0.85-1.17); PROTIME 12.4 SECONDS (11.6-15.0)
[2017-06-13 04:20] VITALS: BP 85/36
[2017-06-13 07:42] LABS: BASOPHILS 0.1 % (0-2); EOSINOPHILS 3.8 % (0-7); HEMATOCRIT 35.3 % (36.0-48.0); HEMOGLOBIN 11.3 g/dL (12-16); IMMATURE GRANULOCYTES 0.3 % (0-5); LYMPHOCYTES 35.2 % (15-50); MCH 29.1 pg (26.0-34.0); MEAN PLATELET VOLUME 10.7 fL (7.4-10.4); MONOCYTES 6.3 % (2-11); NEUTROPHILS 54.3 % (40-80); PLATELET COUNT 276 10x3/uL (130-400); RBC 3.88 10x6/uL (4.00-5.40); RDW 13.7 % (11.5-14.5); WBC 7.2 10x3/uL (4.8-10.8)
[2017-06-13 07:56] LABS: ALBUMIN 2.5 g/dL (3.4-5.0); ALKALINE PHOSPHATASE 91 U/L (46-116); ALT (SGPT) 11 U/L (10-68); CALC OSMOLALITY 280 mosm/kg (275-300); CALCIUM 8.4 mg/dL (8.5-10.1); CARBON DIOXIDE 28.2 mmol/L (21.0-32.0); CHLORIDE - SERUM 110 mmol/L (98-107); CREATININE - SERUM 0.6 mg/dL (0.6-1.3); GLUCOSE 96 mg/dL (74-106); POTASSIUM - SERUM 3.4 mmol/L (3.5-5.1); PROTEIN - SERUM 5.5 g/dL (6.4-8.2); SODIUM 142 mmol/L (136-145); UREA NITROGEN 7 mg/dL (7-18); eGFR NON AFRICAN AMERICAN > 90 mL/min (90-120)
[2017-06-13 08:00] VITALS: BP 118/76
[2017-06-13 20:00] VITALS: BP 112/67
[2017-06-14] VITALS: BP 117/46
[2017-06-14 06:15] VITALS: BP 91/42
[2017-06-14 06:40] LABS: BASOPHILS 0.1 % (0-2); EOSINOPHILS 4.5 % (0-7); HEMATOCRIT 33.7 % (36.0-48.0); HEMOGLOBIN 10.9 g/dL (12-16); IMMATURE GRANULOCYTES 0.1 % (0-5); LYMPHOCYTES 35.3 % (15-50); MCH 29.5 pg (26.0-34.0); MCHC 32.3 g/dL (31.0-37.0); MCV 91.1 fL (80.0-100.0); MEAN PLATELET VOLUME 10.3 fL (7.4-10.4); MONOCYTES 7.3 % (2-11); NEUTROPHILS 52.7 % (40-80); PLATELET COUNT 254 10x3/uL (130-400); RDW 13.4 % (11.5-14.5); WBC 8.5 10x3/uL (4.8-10.8)
[2017-06-14 07:02] LABS: ALBUMIN 2.5 g/dL (3.4-5.0); ALKALINE PHOSPHATASE 110 U/L (46-116); ALT (SGPT) 9 U/L (10-68); CARBON DIOXIDE 28.5 mmol/L (21.0-32.0); CHLORIDE - SERUM 105 mmol/L (98-107); CREATININE - SERUM 0.5 mg/dL (0.6-1.3); GLUCOSE 86 mg/dL (74-106); PROTEIN - SERUM 5.3 g/dL (6.4-8.2); SODIUM 142 mmol/L (136-145); eGFR NON AFRICAN AMERICAN > 90 mL/min (90-120)
[2017-06-14 07:06] LABS: BILIRUBIN - TOTAL 0.04 mg/dL (0.2-1.3); CALC OSMOLALITY 280 mosm/kg (275-300); POTASSIUM - SERUM 4.1 mmol/L (3.5-5.1); UREA NITROGEN 9 mg/dL (7-18)
[2017-06-14 08:19] VITALS: BP 111/77
[2017-06-14 12:19] VITALS: BP 122/68
[2017-06-14 14:08] LABS: AFB SPECIMEN PROCESSING Concentration (())
[2017-06-14 15:44] VITALS: BP 117/52
[2017-06-14 20:21] VITALS: BP 148/85
[2017-06-15 04:05] VITALS: BP 114/71
[2017-06-15 06:30] LABS: BASOPHILS 0.2 % (0-2); EOSINOPHILS 4.9 % (0-7); HEMATOCRIT 35.4 % (36.0-48.0); HEMOGLOBIN 11.4 g/dL (12-16); LYMPHOCYTES 42.1 % (15-50); MCH 29.2 pg (26.0-34.0); MCHC 32.2 g/dL (31.0-37.0); MCV 90.5 fL (80.0-100.0); MEAN PLATELET VOLUME 10.3 fL (7.4-10.4); MONOCYTES 6.7 % (2-11); NEUTROPHILS 46.1 % (40-80); PLATELET COUNT 263 10x3/uL (130-400); RBC 3.91 10x6/uL (4.00-5.40); RDW 13.2 % (11.5-14.5)
[2017-06-15 06:33] LABS: WBC 6.1 10x3/uL (4.8-10.8)
[2017-06-15 06:52] LABS: ALBUMIN 2.9 g/dL (3.4-5.0); ALKALINE PHOSPHATASE 101 U/L (46-116); AMYLASE - SERUM 26 U/L (25-115); CALC OSMOLALITY 281 mosm/kg (275-300); CALCIUM 8.8 mg/dL (8.5-10.1); CARBON DIOXIDE 30.8 mmol/L (21.0-32.0); CHLORIDE - SERUM 104 mmol/L (98-107); GLUCOSE 89 mg/dL (74-106); LIPASE 56 U/L (73-393); PROTEIN - SERUM 6.5 g/dL (6.4-8.2); SODIUM 143 mmol/L (136-145); UREA NITROGEN 8 mg/dL (7-18)
[2017-06-15 06:54] LABS: ALT (SGPT) 13 U/L (10-68); CREATININE - SERUM 0.7 mg/dL (0.6-1.3); POTASSIUM - SERUM 3.4 mmol/L (3.5-5.1); eGFR NON AFRICAN AMERICAN > 90 mL/min (90-120)
[2017-06-15 07:54] VITALS: BP 139/82
[2017-06-15 16:26] VITALS: BP 118/53
[2017-06-15 21:52] VITALS: BP 109/68
[2017-06-16 00:37] VITALS: BP 119/77
[2017-06-16 04:59] VITALS: BP 124/78
[2017-06-16 05:05] LABS: BASOPHILS 0.2 % (0-2); EOSINOPHILS 5.4 % (0-7); HEMATOCRIT 36.4 % (36.0-48.0); HEMOGLOBIN 11.6 g/dL (12-16); IMMATURE GRANULOCYTES 0.1 % (0-5); LYMPHOCYTES 35.2 % (15-50); MCHC 31.9 g/dL (31.0-37.0); MEAN PLATELET VOLUME 10.9 fL (7.4-10.4); MONOCYTES 6.6 % (2-11); NEUTROPHILS 52.5 % (40-80); PLATELET COUNT 251 10x3/uL (130-400); RDW 13.3 % (11.5-14.5)
[2017-06-16 05:20] LABS: WBC 8.5 10x3/uL (4.8-10.8)
[2017-06-16 05:30] LABS: ALBUMIN 2.8 g/dL (3.4-5.0); ALKALINE PHOSPHATASE 117 U/L (46-116); ALT (SGPT) 12 U/L (10-68); BILIRUBIN - TOTAL 0.13 mg/dL (0.2-1.3); CALC OSMOLALITY 279 mosm/kg (275-300); CALCIUM 8.5 mg/dL (8.5-10.1); CARBON DIOXIDE 29.4 mmol/L (21.0-32.0); CHLORIDE - SERUM 104 mmol/L (98-107); CREATININE - SERUM 0.6 mg/dL (0.6-1.3); GLUCOSE 90 mg/dL (74-106); POTASSIUM - SERUM 3.5 mmol/L (3.5-5.1); PROTEIN - SERUM 6.3 g/dL (6.4-8.2); SODIUM 141 mmol/L (136-145); UREA NITROGEN 9 mg/dL (7-18); eGFR NON AFRICAN AMERICAN > 90 mL/min (90-120)
[2017-06-16 07:44] VITALS: BP 114/55
[2017-06-16] MEDS ORDERED: NORCO 7.5/325 T1 TA1 (11:35)
[2017-06-16 12:02] VITALS: BP 127/62
[2017-08-03 15:09] LABS: ACID FAST CULTURE Negative (()); ACID FAST SMEAR Negative (())
== END 2017-06-16 13:44 | disposition home or self-care (01) | DRG 438 ==
LOC: D.ER 22:11 → D.MS 06-11 03:40
PROVIDERS: Family Medicine; General Practice; Internal Medicine Gastroenterology; Nurse Practitioner Family
PROC: 0W9G30Z Drainage of Peritoneal Cavity with Drainage Device, Percutaneous Approach (ICD-10-PCS; principal; 2017-06-12 17:15)
DX: K85.90 Acute pancreatitis without necrosis or infection, unspecified (principal); N15.1 Renal and perinephric abscess; K86.3 Pseudocyst of pancreas; N12 Tubulo-interstitial nephritis, not specified as acute or chronic; K52.9 Noninfective gastroenteritis and colitis, unspecified; M10.9 Gout, unspecified; F41.9 Anxiety disorder, unspecified; J44.9 Chronic obstructive pulmonary disease, unspecified; F17.200 Nicotine dependence, unspecified, uncomplicated; K29.80 Duodenitis without bleeding; K29.70 Gastritis, unspecified, without bleeding; F31.9 Bipolar disorder, unspecified; D64.9 Anemia, unspecified

== ENCOUNTER 2019-08-30 08:00 | Outpatient (CLI) | payer MEDICAID ==
[2017-06-11 16:56] VITALS: BMI 22.1
[~2019-08-30 08:00] MED LIST changes: +LAMICTAL25 MG PO; +NORCO 7.5/325 T1 TA1; +ROPINIROLE HCL2 MG PO
== END 2019-08-30 10:00 | disposition home or self-care (01) ==
LOC: D.MAMMO 08:00
PROVIDERS: ATTEND Emergency Medicine
DX: N64.59 Other signs and symptoms in breast (principal); N64.4 Mastodynia